=== PATIENT | female | born 2000 | race Caucasian/White ===

== ENCOUNTER 2020-12-17 14:58 | Observation (INO) | payer OTHER ==
[2020-12-17] MEDS ORDERED: hydrALAZINE 20 MG/ML VIAL SLOW IVP PRN ×2 (15:50→17:41)
[2020-12-17 15:56] VITALS: BMI 37.8
[2020-12-17 16:36] LABS: #Basophils 0.1 10x3/uL (0.0-0.2); #Eosinphils 0.3 10x3/uL (0.0-0.5); #Monocytes 1.2 10x3/uL (0.0-1.1); %Basophils 0.4 % (0.0-2.0); %Eosinophils 2.2 % (0.0-6.0); %Lymphocytes 16.3 % (18.0-47.0); %Monocytes 9.4 % (0.0-10.0); %Neutrophils 69.8 % (40.0-75.0); Hemoglobin 12.6 g/dL (12.0-15.5); Mean Corpuscular HGB CONC 34.7 g/dL (32.0-36.0); Mean Corpuscular Hemoglobin 34.1 pg (27.0-33.0); Mean Corpuscular Volume 98.4 fl (81.6-98.3); Platelet Count 268 10x3/uL (150-450); RBC Distribution Width 12.7 % (11.5-14.5); Red Blood Cell (RBC) Count 3.69 10x6/uL (3.90-5.03); White Blood Cell (WBC) Count 12.9 10x3/uL (3.5-10.5)
[2020-12-17 16:53] LABS: ALT (SGPT) 16 U/L (8-55); AST (SGOT) 22 U/L (5-34); Albumin 3.1 g/dL (3.5-5.0); Alkaline Phosphatase 128 U/L (40-110); Anion Gap 13 mmol/L (10-20); BUN (Urea Nitrogen) 8 mg/dL (7.0-18.7); Bilirubin, Total 0.1 mg/dL (0.2-1.2); Calc. Creatinine Clearance 169 mL/min (70-130); Calcium 8.3 mg/dL (7.8-10.44); Carbon Dioxide 20 mmol/L (22-29); Chloride 109 mmol/L (98-107); Globulin 3.2 g/dL (2.4-3.5); Glucose 93 mg/dL (70-105); Potassium 3.9 mmol/L (3.5-5.1); Protein, Total 6.3 g/dL (6.0-8.3); Sodium 138 mmol/L (136-145)
[2020-12-17 17:11] LABS: Creatinine, Urine 56.92 mg/dL (47-110)
[2020-12-17] MEDS ORDERED: Promethazine HCl 25 MG/ML VIAL IM PRN (17:41)
[2020-12-17] MEDS ORDERED: Ondansetron PF 4 MG/2 ML Vial IVP PRN (17:41)
[2020-12-17] MEDS ORDERED: Zolpidem Tartrate 5 MG TAB PO PRN (17:41)
[2020-12-17] MEDS ORDERED: Betamet Acet/Betamet Na Ph 30 MG/5 ML VIAL ONE (17:59)
[2020-12-17] MEDS: Betamet Acet/Betamet Na Ph 30 MG/5 ML VIAL IM SCH (18:10)
[2020-12-17] MEDS: Acetaminophen 500 MG TAB PO PRN (18:24)
[2020-12-18] MEDS: Acetaminophen 500 MG TAB PO PRN ×2 (00:19→09:03)
[2020-12-18] MEDS ORDERED: Betamet Acet/Betamet Na Ph 30 MG/5 ML VIAL IM SCH (18:15)
[2020-12-18] MEDS: Betamet Acet/Betamet Na Ph 30 MG/5 ML VIAL IM SCH (18:25)
[2020-12-18 19:49] VITALS: BP 123/69; TEMP 98.1
[2020-12-18 21:08] LABS: Urine Total Volume 2175 mL (600-1600)
[2020-12-18 21:12] LABS: Protein - 24 Hr 1175 mg/24 hr (Less than 300); Protein, Urine 54 mg/dL (1-14)
== END 2020-12-18 20:20 | disposition home or self-care (01) ==
LOC: CSHLD/OP 14:58 → CSHANTE 17:41 → UNDOADMOB 20:45 → INTOOBSV 20:45
PROVIDERS: ADMIT Obstetrics & Gynecology; ATTEND Obstetrics & Gynecology
DX: O26.893 Other specified pregnancy related conditions, third trimester (principal); R51.9 Headache, unspecified; O12.03 Gestational edema, third trimester; Z3A.34 34 weeks gestation of pregnancy; Z79.899 Other long term (current) drug therapy
CPT/HCPCS: 80053; 82570; 84156; 85025; 96372; G0378; J0702

== ENCOUNTER 2021-01-01 13:13 | Outpatient (CLI) | payer OTHER, MEDICAID ==
[2021-01-02 01:55] LABS: SARS-CoV-2 PCR by NAA Not Detected (NotDetected)
== END 2021-01-01 13:14 | disposition home or self-care (01) ==
LOC: CSHLAB 13:13
PROVIDERS: ATTEND Obstetrics & Gynecology
DX: Z20.822 Contact with and (suspected) exposure to COVID-19 (principal)
CPT/HCPCS: 87635; U0003; U0005

== ENCOUNTER 2021-01-03 05:30 | Inpatient (IN) | payer OTHER ==
[2021-01-03] MEDS ORDERED: Ibuprofen 800 MG TAB PO PRN (06:15)
[2021-01-03] MEDS ORDERED: Lidocaine 1% (PF) 30 ML VIAL SC PRN (06:15)
[2021-01-03] MEDS ORDERED: Butorphanol Tartrate 1 MG/ML VIAL SLOW IVP PRN (06:15)
[2021-01-03] MEDS ORDERED: Promethazine HCl 25 MG/ML VIAL IM PRN ×3 (06:15→21:36)
[2021-01-03] MEDS ORDERED: hydrALAZINE 20 MG/ML VIAL SLOW IVP PRN (06:15)
[2021-01-03] MEDS ORDERED: Lactated Ringer's 1,000 ML IV SCH (06:15)
[2021-01-03] MEDS ORDERED: HYDROcodone/Acetaminophen 5/325 mg Tablet PO PRN ×2 (06:15)
[2021-01-03 06:17] VITALS: BMI 38.3
[2021-01-03] MEDS ORDERED: Penicillin G Potassium 5 MILL.UNITS in Sodium Chloride 0.9% 100 ML IVPB SCH (06:30)
[2021-01-03] MEDS ORDERED: NS w/ Oxytocin 30 units 500 ML IVPB PRN (06:35)
[2021-01-03] MEDS ORDERED: NS w/ Oxytocin 30 units 500 ML IVPB SCH (06:45)
[2021-01-03] MEDS: Lactated Ringer's 1,000 ML IV SCH ×2 (07:00→17:00)
[2021-01-03 08:01] LABS: Hemoglobin 12.9 g/dL (12.0-15.5); Mean Corpuscular HGB CONC 34.4 g/dL (32.0-36.0); Mean Corpuscular Hemoglobin 33.2 pg (27.0-33.0); Mean Corpuscular Volume 96.4 fl (81.6-98.3); Platelet Count 262 10x3/uL (150-450); RBC Distribution Width 12.7 % (11.5-14.5); Red Blood Cell (RBC) Count 3.89 10x6/uL (3.90-5.03); White Blood Cell (WBC) Count 12.4 10x3/uL (3.5-10.5)
[2021-01-03] MEDS: Ondansetron PF 4 MG/2 ML Vial IVP PRN ×2 (08:06→14:21)
[2021-01-03 08:45] LABS: Hep B Surf Ag Non-Reactive S/CO (NonReactive)
[2021-01-03 08:46] LABS: Syphilis Antibody Nonreactive (Nonreactive); Syphilis Antibody Index 0.15 S/CO (<1.00 Non-Reactive)
[2021-01-03 08:49] LABS: HBSAg Index 0.16 S/CO (0-0.99)
[2021-01-03] MEDS ORDERED: Fentanyl 4 mcg/Bup 0.1% Cadd 100 ML ONE ×2 (10:21→17:58)
[2021-01-03] MEDS ORDERED: Lactated Ringer's 500 ML IV PRN (10:52)
[2021-01-03] MEDS ORDERED: Naloxone HCl 0.4 mg/ml Vial IVP PRN ×4 (10:52→21:36)
[2021-01-03] MEDS ORDERED: ePHEDrine 50 MG/ML VIAL SLOW IVP PRN (10:52)
[2021-01-03] MEDS ORDERED: Acetaminophen 325 MG TAB PO PRN (10:52)
[2021-01-03] MEDS ORDERED: Ondansetron PF 4 MG/2 ML Vial IVP PRN ×2 (10:52→21:36)
[2021-01-03] MEDS ORDERED: Eucerin (Mineral Oil/Petrolatum,White) 30 gm Jar TOP PRN ×2 (10:52→21:36)
[2021-01-03] MEDS ORDERED: diphenhydrAMINE 50 MG/ML VIAL IVP PRN ×3 (10:52→21:36)
[2021-01-03] MEDS ORDERED: Fentanyl 4 mcg/Bupivacaine 0.1% Cassette 100 ML EPIDURAL SCH (11:00)
[2021-01-03] MEDS ORDERED: Communication Order-Pharmacy FS SCH ×2 (11:00→21:45)
[2021-01-03] MEDS: Penicillin G 2.5 MILL.units 2.5 MILL.UNITS in Premix Bag 1 BAG IVPB SCH ×2 (11:34→15:40)
[2021-01-03] MEDS ORDERED: Fentanyl 100 MCG/2 ML VIAL ONE ×3 (15:49→21:22)
[2021-01-03] MEDS ORDERED: Calcium Carbonate 500 MG ChewTAB PO SCH (17:30)
[2021-01-03] MEDS ORDERED: Acetaminophen 500 MG TAB PO SCH (18:30)
[2021-01-03] MEDS ORDERED: Gentamicin 80 MG/2 ML VIAL IVPB SCH (18:41)
[2021-01-03] MEDS ORDERED: Azithromycin 500 MG in Sodium Chloride 0.9% 250 ML 250 ML IVPB SCH ×2 (19:15→20:45)
[2021-01-03] MEDS ORDERED: Famotidine/PF 20 mg/2ml Vial SLOW IVP PRN (20:33)
[2021-01-03] MEDS ORDERED: Bicitra 30 ML UDCUP PO PRN (20:33)
[2021-01-03] MEDS ORDERED: CEFAZOLIN 2 GM in Premix Bag 1 BAG IVPB SCH (20:45)
[2021-01-03] MEDS ORDERED: Dexamethasone 4 mg/ml Vial ONE (20:52)
[2021-01-03] MEDS ORDERED: Ondansetron PF 4 MG/2 ML Vial ONE (20:52)
[2021-01-03] MEDS ORDERED: Morphine PF 10 MG/10 ML VIAL ONE (20:53)
[2021-01-03] MEDS ORDERED: Lidocaine 1% PF 10 ML AMP ONE (21:01)
[2021-01-03] MEDS ORDERED: Carboprost 250 MCG/ML AMP ONE (21:11)
[2021-01-03] MEDS ORDERED: Methylergonovine 0.2 MG/ML VIAL ONE (21:11)
[2021-01-03] MEDS ORDERED: Misoprostol 200 MCG TAB ONE (21:11)
[2021-01-03] MEDS ORDERED: Midazolam HCl 2 mg/2 ml Vial ONE ×2 (21:15→21:24)
[2021-01-03] MEDS ORDERED: Oxytocin 10 UNITS/ML VIAL ONE (21:26)
[2021-01-03] MEDS ORDERED: Ketorolac Tromethamine 30 MG/ML VIAL IVP PRN (21:36)
[2021-01-03] MEDS ORDERED: L&D-Morphine 4 MG/ML VIAL SLOW IVP PRN (21:36)
[2021-01-03] MEDS ORDERED: Ondansetron HCl/PF 4 MG/2 ML Vial IVP PRN (21:36)
[2021-01-03] MEDS ORDERED: Promethazine HCl 25 MG SUPP PR PRN (21:36)
[2021-01-03] MEDS ORDERED: Meperidine HCl/PF 25 MG/ML VIAL SLOW IVP PRN (21:36)
[2021-01-03] MEDS ORDERED: HYDROmorphone 2 MG/ML VIAL SLOW IVP PRN (21:36)
[2021-01-03] MEDS ORDERED: Naloxone HCl 0.4 mg/ml Vial IV PRN (21:36)
[2021-01-03] MEDS ORDERED: Ketorolac Tromethamine 30 MG/ML VIAL ONE (21:37)
[2021-01-03] MEDS ORDERED: Ketorolac Tromethamine 30 MG/ML VIAL IVP SCH (21:45)
[2021-01-03] MEDS ORDERED: Hydrocerin (Eucerin) Cream 120 gm Jar TOP PRN (21:58)
[2021-01-03] MEDS: Gentamicin Sulfate 80 MG in Premix Bag 1 BAG IVPB SCH (22:42)
[2021-01-03] MEDS: Acetaminophen 650 MG Suppository PR SCH (23:05)
[2021-01-04] MEDS ORDERED: diphenhydrAMINE 25 MG CAP PO PRN (00:56)
[2021-01-04] MEDS ORDERED: NS / Oxytocin 40 units/1000ml 1,000 ML IV SCH (00:56)
[2021-01-04] MEDS ORDERED: Bisacodyl 10 MG SUPP PR PRN (00:56)
[2021-01-04] MEDS ORDERED: HYDROcodone/Acetaminophen 5/325 mg Tablet PO PRN ×4 (00:56→09:45)
[2021-01-04] MEDS ORDERED: Zolpidem Tartrate 5 MG TAB PO PRN (00:56)
[2021-01-04] MEDS ORDERED: Simethicone Chewable 80 MG TAB PO PRN (00:56)
[2021-01-04] MEDS ORDERED: Ondansetron PF 4 MG/2 ML Vial IVP PRN (00:56)
[2021-01-04] MEDS ORDERED: hydrALAZINE 20 MG/ML VIAL SLOW IVP PRN (00:56)
[2021-01-04] MEDS: Penicillin G 2.5 MILL.units 2.5 MILL.UNITS in Premix Bag 1 BAG IVPB SCH ×2 (02:48→02:49)
[2021-01-04 03:17] LABS: pH (Cord, venous) 7.321 (7.250-7.350)
[2021-01-04] MEDS: Gentamicin Sulfate 80 MG in Premix Bag 1 BAG IVPB SCH ×3 (03:55→19:57)
[2021-01-04] MEDS: Acetaminophen 650 MG Suppository PR SCH (05:54)
[2021-01-04 06:08] LABS: Hemoglobin 11.2 g/dL (12.0-15.5); Mean Corpuscular HGB CONC 34.6 g/dL (32.0-36.0); Mean Corpuscular Hemoglobin 33.1 pg (27.0-33.0); Mean Corpuscular Volume 95.9 fl (81.6-98.3); Mean Platelet Volume 10.1 fl (7.4-10.4); Platelet Count 181 10x3/uL (150-450); RBC Distribution Width 12.3 % (11.5-14.5); Red Blood Cell (RBC) Count 3.38 10x6/uL (3.90-5.03); White Blood Cell (WBC) Count 19.9 10x3/uL (3.5-10.5)
[2021-01-04] MEDS: CEFAZOLIN 1 GM in Sodium Chloride 0.9% 100 ML IVPB SCH ×3 (06:12→22:36)
[2021-01-04] MEDS ORDERED: Adacel (T-DAP) 0.5 ML SYRINGE IM ONE (09:00)
[2021-01-04] MEDS: Prenatal Vitamin 1 TAB PO SCH (09:14)
[2021-01-04] MEDS: HYDROcodone/Acetaminophen 5/325 mg Tablet PO PRN ×3 (09:14→19:57)
[2021-01-04] MEDS: Docusate Calcium (SURFAK) 240 MG CAP PO SCH ×2 (09:14→20:01)
[2021-01-04] MEDS ORDERED: Meperidine HCl/PF 25 MG/ML VIAL IM PRN (09:45)
[2021-01-04] MEDS ORDERED: Sodium Chloride 0.9% 100 ML ONE (14:12)
[2021-01-04] MEDS: Ibuprofen 800 MG TAB PO SCH (16:21)
[2021-01-04] MEDS ORDERED: Lidocaine 2% MPF 10 ML AMP (For Epidural Use) ONE (19:55)
[2021-01-04] MEDS ORDERED: Bupivacaine PF 0.5% 30 ML VIAL ONE (19:55)
[2021-01-04] MEDS ORDERED: Bupivacaine 0.25% HCL 30 ML VIAL ONE (19:55)
[2021-01-05] MEDS: Ibuprofen 800 MG TAB PO SCH ×2 (00:19→07:35)
[2021-01-05] MEDS: Gentamicin Sulfate 80 MG in Premix Bag 1 BAG IVPB SCH (04:14)
[2021-01-05] MEDS: CEFAZOLIN 1 GM in Sodium Chloride 0.9% 100 ML IVPB SCH (05:50)
[2021-01-05] MEDS ORDERED: Ibuprofen 800 MG TAB PO SCH (06:00)
[2021-01-05] MEDS: Lactated Ringer's 1,000 ML IV SCH ×3 (07:12→12:07)
[2021-01-05] MEDS: HYDROcodone/Acetaminophen 5/325 mg Tablet PO PRN (08:49)
[2021-01-05] MEDS: Prenatal Vitamin 1 TAB PO SCH (08:50)
[2021-01-05] MEDS: Docusate Calcium (SURFAK) 240 MG CAP PO SCH (08:50)
[2021-01-05 12:38] VITALS: BP 115/64; TEMP 97.8
== END 2021-01-05 15:05 | disposition home or self-care (01) | DRG 786 ==
LOC: CSHLD 05:45 → CSHPP 01-04 01:07
PROVIDERS: ADMIT Obstetrics & Gynecology; ATTEND Obstetrics & Gynecology
PROC: 10D00Z1 Extraction of Products of Conception, Low, Open Approach (ICD-10-PCS; principal; 2021-01-03)
DX: O32.4XX0 Maternal care for high head at term, not applicable or unspecified (principal); O41.1230 Chorioamnionitis, third trimester, not applicable or unspecified; Z3A.37 37 weeks gestation of pregnancy; Z37.0 Single live birth
CPT/HCPCS: 36415; 51702; 82805; 85027; 86780; 86850; 86900; 86901; 87340; 87635; 88307; J0456; J0595; J0690; J1100; J1200; J1580; J1885; J2001; J2175; J2250; J2274; J2405; J2540; J2590; J3010; J3490; J7050; S0020; U0003; U0005